=== PATIENT | male | born 1955 | race Caucasian/White ===

== ENCOUNTER 2017-02-10 08:26 | Day surgery (SDC) | payer OTHER ==
[2017-02-08 17:06] VITALS: BMI 40.1
[2017-02-10] MEDS ORDERED: LIDOCAINE 1%/EPI 1:100000 (20 ML MULTI DOSE VIAL) ONE (09:20)
[2017-02-10] MEDS ORDERED: BACITRACIN 15 GM TUBE TOPICAL OINTMENT ONE (09:20)
[2017-02-10] MEDS ORDERED: MIDAZOLAM HCL 2 MG/2 ML SINGLE DOSE VIAL ONE ×2 (10:07→10:20)
[2017-02-10] MEDS ORDERED: ONDANSETRON 4 MG/2 ML VIAL IVPUSH PRN (10:11)
[2017-02-10] MEDS ORDERED: oxyCODONE HCL 5 MG TABLET PO PRN (10:11)
[2017-02-10] MEDS ORDERED: PROPOFOL 20 ML ONE ×2 (10:12)
[2017-02-10] MEDS ORDERED: LACTATED RINGERS SOLUTION 1,000 ML IV SCH (10:15)
[2017-02-10] MEDS ORDERED: ONDANSETRON 4 MG/2 ML VIAL ONE (10:41)
[2017-02-10] MEDS ORDERED: BUPIVACAINE HCL/PF 0.5% (5MG/ML) 10 ML VIAL ONE (10:53)
[2017-02-10] MEDS ORDERED: BUPIVACAINE HCL/PF 0.5% (5MG/ML) 10 ML VIAL IJ ONE (11:13)
--- NOTE | 2017-02-10 11:16 | OP ---
Operative Note - Note: Operative Date: 02/10/17 Pre-Operative Diagnosis: Squamous cell carcinoma in situ, of the skin of left occipital area, (mastoid) of scalp. 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 Excised area [id number]. with layered closure. Findings: Squamous cell carcinoma in-situ, of the skin of the left occipital area of scalp.Reexcision. Post-Operative Diagnosis: Same as Pre-op Surgeon: Abel Najera Anesthesiologist/PAPER SLITTER: Kingsley Lofton Anesthesia: Local, MAC Specimens Removed: Squamous cell carcinoma in-situ of the skin of the scalp. Estimated Blood Loss (mls): 5 Operative Report Dictated: Yes
[2017-02-10 11:32] VITALS: TEMP 98
--- NOTE | 2017-02-10 11:44 | HP ---
History & Physical Update - History History: No Change - Physical Physical: No Change - Assessment Assessment: No Change - Plan Plan: No Change (Squamous cell carcinoma in situ of skin on left occipital area of scalp.)
--- NOTE | 2017-02-10 11:45 | HP ---
[facility] - Past Medical History Allergies/Adverse Reactions: Allergies Allergy/AdvReac Type Severity Reaction Status Date / Time No Known Drug Allergies Allergy Verified 01/06/17 09:16 - Current Medications Current Medications: Home Medications Medication Instructions Recorded Canagliflozin [Invokana] 100 mg PO DAILY 01/03/17 Lisinopril [Prinivil] 20 mg PO DAILY 01/03/17 Metoprolol Succinate [Toprol Xl -] 25 mg PO DAILY 01/03/17 Rivaroxaban [Xarelto -] 20 mg PO DAILY 01/03/17 Sitagliptin Phos/Metformin HCl 0.5 each PO DAILY 01/03/17 [Janumet 50-500 mg Tablet] Ibuprofen [Advil -] 200 mg PO TID #21 tablet 02/10/17 Satellite Physical Exam - Physical Examination Vital Signs: Vital Signs Period Temp Pulse Resp BP Sys/Musa Pulse Ox Last 24 Hr 98.0 F-98.2 F 72-82 10-18 103-126/50-82 95-97
[2017-02-10 12:50] VITALS: PULSE 77
[2017-02-10 12:52] VITALS: BP 118/60
--- NOTE | 2017-02-11 05:45 | OP ---
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 POSTOPERATIVE DIAGNOSIS: Squamous cell carcinoma in situ (Reece disease) of the skin of the left occipital area (mastoid) of the scalp. OPERATIVE PROCEDURE: 1. Wide excision of squamous cell carcinoma in situ (Reece disease) of the skin of the left occipital area (mastoid) of the scalp with margins. 2. Excised area 4 cm x 3 cm deep to the deep fascia with layered closure. SURGEON: Trixie Najera MD ANESTHESIA: Local with monitored intravenous sedation. ANESTHESIOLOGIST: Kingsley Lofton MD OPERATIVE DESCRIPTION: This 61-year-old man had previously 2 lesions in the left mastoid area of the scalp. They were excised and closed. The one posterior to it turned out to be Reece disease with positive margins. The patient was, therefore, brought back for re-excision for a wider margin of the squamous cell carcinoma in situ. The site was marked. Consultation was obtained. Risks, benefits, and complications were discussed with the patient. The patient was placed in the right lateral position. He was given intravenous sedation. The area of concern was painted and draped. The time-out was called. Then 1% lidocaine with epinephrine was injected around the lesion. An elliptical area of skin around the previous scar measuring 4-5 cm in length with 3-cm width was incised with the No. 15 blade. The incision was deepened through the skin and subcutaneous fat all the way down to the deep fascia. The lesion was completely excised. The anterior site was marked with a suture. Specimen was labeled and sent to Pathology. Again, a superior and anterior margin of about 2 mm of skin from end to end was excised and sent separately. Another inferior and lateral margin of 2 mm in length was also excised from end to end and sent separately as an inferolateral margin, thus 3 specimens were sent to Pathology. Hemostasis was achieved using electrocautery. The subcutaneous fat and deep fascia was then incised to enable to mobilize the wound edges. This was then approximated with buried interrupted 3-0 Vicryl sutures. The skin was then approximated with interrupted 2-0 silk sutures in a vertical mattress fashion. Dermabond was applied across the skin edges. Estimated blood loss was about 5 mL. The patient tolerated the procedure well and was sent to the recovery room in satisfactory and stable condition. Manish HERNANDEZ/[id number]
--- NOTE | 2017-02-13 14:15 | PATH ---
Surgical Pathology Report Patient Name: GERONIMO HUSSEIN [facility]. Rec. #: [id number] /Age/Gender: 1955 (Age: 61) / M Account: [id number] Location: [facility] SUR[facility] Taken: 02/10/2017 Received: 02/10/2017 Reported: 02/13/2017 Physicians: Trixie Najera M.D. Specimen(s) Received A: WIDE EXCISION OF SQUAMOUS CELL CARCINOMA OF SKIN OVER LEFT MASTOID-STITCH SINGLE STRAND ANTERIOR DOUBLE STRAND SUPERIOR MARGIN/POSTERIOR B: SQUAMOUS CELL OF SKIN -SUTURE IS ANTERIOR SUPERIOR/POSTERIOR MARGIN C: SQUAMOUS CELL OF SKIN-SUTURE IS PORTERIOR INFERIOR MARGIN Clinical History Squamous cell carcinoma of skin over left mastoid Final Diagnosis A. SKIN, LEFT MASTOID, EXCISION: EXTENSIVE SOLAR ELASTOSIS, ALONG WITH DERMAL SCAR AND SUBCUTANEOUS FAT NECROSIS CONSISTENT WITH PRIOR EXCISION SITE. NO RESIDUAL SQUAMOUS CELL CARCINOMA IN SITU IDENTIFIED. B. SKIN, LEFT MASTOID SUPERIOR/POSTERIOR MARGIN, EXCISION: SKIN WITH EXTENSIVE SOLAR ELASTOSIS, ALONG WITH SUBCUTANEOUS FAT NECROSIS AND FOREIGN BODY REACTION CONSISTENT WITH PRIOR EXCISION SITE. NO RESIDUAL SQUAMOUS CELL CARCINOMA IN SITU IDENTIFIED. C. SKIN, LEFT MASTOID INFERIOR MARGIN, EXCISION: SKIN WITH EXTENSIVE SOLAR ELASTOSIS. NO RESIDUAL SQUAMOUS CELL CARCINOMA IN SITU IDENTIFIED. Comment: Also see prior specimen [id number]. Electronically Signed Tanvir Cook M.D. Gross Description A. Received in formalin labeled "squamous cell left mastoid," is a 2.9 x 0.9 cm rodriguez, elliptical portion of skin excised to a depth of 0.5 cm. The epidermal surface displays a central, linear, well-healed scar. There is a single strand suture marking the anterior tip and a double strand suture marking the superior margin. The specimen is inked as follows: Superior aspect blue, inferior aspect green, anterior tip differentially inked red. The specimen is sectioned from anterior to posterior. The specimen is entirely and sequentially submitted in 5 cassettes with the anterior tip in cassette 1 and the posterior tip in cassette 5. B. Received in formalin labeled "squamous cell left mastoid superior/posterior margin," is a 2.7 x 0.2 cm rodriguez, elliptical portion of skin with a suture marking the anterior tip, per the surgeon. The epidermal surface is unremarkable. The specimen is inked as follows: New superior margin blue, inferior margin green, anterior tip differentially inked red. The specimen is serially sectioned and entirely and sequentially submitted in 5 cassettes with the anterior tip in cassette 1 and the posterior tip in cassette 5. C. Received in formalin labeled "squamous cell left mastoid inferior margin," is a 3.3 x 0.3 cm rodriguez, elliptical portion of skin with a suture marking the posterior tip, per the surgeon. The epidermal surface is unremarkable. The specimen is inked as follows: New inferior margin green, superior blue, posterior tip differentially inked black. The specimen is serially sectioned and entirely and sequentially submitted in 5 cassettes with the anterior tip in cassette 1 and the posterior tip in cassette 5. 02/10/2017 saudi02/10/2017
== END 2017-02-10 13:03 | disposition home or self-care (01) ==
LOC: JASU-SURG 08:26
PROVIDERS: ATTEND Specialist
PROC: 0JB00ZZ Excision of Scalp Subcutaneous Tissue and Fascia, Open Approach (ICD-10-PCS; principal; 2017-02-10 10:00)
DX: D04.4 Carcinoma in situ of skin of scalp and neck (principal)
CPT/HCPCS: 88305-TC; 94760